=== PATIENT | female | born 1975 | race Caucasian/White ===

== ENCOUNTER 2017-02-11 06:56 | Day surgery (SDC) | payer OTHER ==
[~2017-02-11 06:56] MED LIST: CEFAZOLIN SODIUM 2 GRAM PREMIX 100 ML IV ONE; IV START KIT ONE; SODIUM CHLORIDE 0.9% 1,000 ML ONE
[2017-02-11] MEDS ORDERED: GENTAMICIN SULFATE 320 MG in SODIUM CHLORIDE 0.9% 100 ML IV PRN (07:50)
[2017-02-11] MEDS ORDERED: CEFAZOLIN SODIUM 2 GRAM DUPLEX 50 ML IV PRN (07:50)
[2017-02-11] MEDS ORDERED: CEFAZOLIN SODIUM 2 GRAM PREMIX 100 ML IV PRN (07:52)
[2017-02-11] MEDS ORDERED: SPINAL PROCEDURAL TRAY 1 EACH ONE (08:14)
[2017-02-11] MEDS ORDERED: BUPIVACAINE 0.75% SPINAL AMPUL 2 ML ONE (08:14)
[2017-02-11] MEDS ORDERED: MIDAZOLAM HCL 5 MG/5 ML VIAL ONE (08:16)
[2017-02-11] MEDS ORDERED: FENTANYL 100 MCG/2 ML VIAL ONE (08:16)
[2017-02-11] MEDS ORDERED: METRONIDAZOLE 20 APPLIC/70 G TUBE ONE (08:21)
[2017-02-11] MEDS ORDERED: LIDOCAINE 0.5%/EPI 1:200,000 (MULTIDOSE) 50 ML VIAL ONE (08:21)
[2017-02-11] MEDS ORDERED: ESTROGENS,CONJUGATED CREAM 30 G/TUBE VG ONE (08:21)
[2017-02-11] MEDS ORDERED: BUPIVACAINE 0.5% (PRES FREE) 30 ML VIAL ONE (08:22)
[2017-02-11] MEDS ORDERED: SODIUM CHLORIDE 0.9% 50 ML ONE (08:22)
[2017-02-11] MEDS ORDERED: NEOMY SULF/POLYMYXIN B SULFATE 1 ML AMP IR ONE (08:24)
[2017-02-11] MEDS ORDERED: OPIUM/BELLADONNA ALKALOIDS 1 EACH SUP PR ONE (08:24)
[2017-02-11] MEDS ORDERED: METOCLOPRAMIDE HCL 5 MG/ML 2ML VIAL ONE (08:48)
[2017-02-11] MEDS ORDERED: PROMETHAZINE HCL 25 MG/ML VIAL IM PRN (08:50)
[2017-02-11] MEDS ORDERED: LABETALOL HCL 5 MG/ML 20ML VIAL IV PRN (08:50)
[2017-02-11] MEDS ORDERED: MEPERIDINE 25 MG/ML SYRINGE IV PRN (08:50)
[2017-02-11] MEDS ORDERED: ATROPINE SULFATE 0.4 MG/1 ML VIAL IV PRN (08:50)
[2017-02-11] MEDS ORDERED: NALOXONE HCL 0.4 MG/ML VIAL IV PRN (08:50)
[2017-02-11] MEDS ORDERED: ONDANSETRON 4 MG/2ML 2 ML VIAL IV PRN ×2 (08:50→10:02)
[2017-02-11] MEDS ORDERED: MORPHINE SULFATE 4 MG/ML SYRINGE IV PRN (08:50)
[2017-02-11] MEDS ORDERED: LACTATED RINGERS 1,000 ML IV SCH (09:00)
[2017-02-11] MEDS ORDERED: MORPHINE SULFATE 2 MG/ML SYRINGE IV PRN (10:02)
[2017-02-11] MEDS ORDERED: HYDROCODONE/ACETAMINOPHEN 5/325MG TABLET PO PRN (10:02)
[2017-02-11] MEDS ORDERED: HYDROCODONE/ACETAMINOPHEN 5/325MG TABLET ONE (12:51)
--- NOTE | 2017-02-11 13:09 | OP ---
MATT PATTERSON [id number] DATE OF OPERATION: February 11, 2017 SURGEON: Alfredo Colunga M.D. POLISH MAKER: Rohan Buckner ANESTHESIA: Spinal. PREOPERATIVE DIAGNOSES: 1. 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 2. Occasional urgency with urge incontinence. POSTOPERATIVE DIAGNOSES: 1. 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 2. Occasional urgency with urge incontinence. PROCEDURE: 1. CYSTOSCOPY. 2. TROCAR SUPRAPUBIC CYSTOSTOMY TUBE PLACEMENT WITH DRAINAGE. 3. SUBURETHRAL SLING. SPECIMENS: None. INDICATIONS: A 41-year-old woman with a greater than two year history of increasing urge symptoms and incontinence with a predominant stress pattern. She has occasional urgency with urge incontinence episodes, previous history of two vaginal deliveries. Studies have confirmed the presence of urethral hypermobility without significant cystocele and at this point she is electing a surgical intervention. There is some mild voiding dysfunction on the basis of conditioned overuse of sphincter. FINDINGS: Healthy appearing vaginal and periurethral tissues. No significant cystocele. Urethral hypermobility as expected. Squamous metaplasia of the trigone. Normal ureteral orifices. No focal bladder wall lesions. PROCEDURE: The patient was identified and brought to the operating room where spinal anesthetic was applied, and then she was placed in a dorsal lithotomy position. The genital region was prepared and draped sterilely including a vaginal preparation. Next, sites were marked 2 cm above the pubic brim in the midline and at the level of the clitoris in the groin folds. These were treated with 0.5% Marcaine and the suprapubic site was opened with a stab incision. Next, cystoscopy was performed with a 17 [place] scope using water as in irrigant. Findings are reported above. Using the scope to overdistend the bladder, we placed the patient in Trendelenburg position and then used a Bard 12 Ni[place]an trocar suprapubic tube system to access the high anterior wall of the overdistended bladder during expiratory phase. The trocar and stylet were removed, and the balloon was inflated and seated against the bladder wall. It was allowed to drain throughout the case and ultimately secured at the level of the skin with #2-0 nylon. Cystoscope was withdrawn and replaced with a Hairston catheter to gravity drainage. A posterior weighted speculum was inserted followed by a [place] retractor for labial retraction. The suburethral tissues were then treated with 0.5% lidocaine containing epinephrine. I opened a vertical incision suburethrally over approximately 1.5 cm and developed tunnels out to the pubis on each side. Next, the previously anesthetized groin sites were opened with stab incisions, and a Halo type carrier was used to come around the medial aspect of the obturator foramen where the tips were delivered into the dissected tunnels. A polypropylene mesh graft was then carried from the vaginal aspect to the groin folds with the carriers on each side. Tensioning was completed with a 20 [place]an sound as a suburethral spacer. We then irrigated with genitourinary irrigant containing some Betadine paint and closed the vaginal wound with a running #2-0 Vicryl suture. The Hairston catheter was then removed and cystoscopy repeated. No perforation of the urethra or other bladder structures were noted aside from the suprapubic tube which remained in good position. The cystoscope was then withdrawn and placement of the urethra checked with a sound. Without any unwanted upward traction, we packed the vagina with gauze containing Flagyl gel and then removed the sutures on the sling itself in the groin folds. The groin wounds were closed with Dermabond underneath SteriStrips. Estimated blood loss less than 50 mL. Sponge and needle counts were correct. No early complications. Patient was taken in stable condition to the post anesthesia room. Cc: Alfredo Colunga M.D. Josh Swift M.D.
== END 2017-02-11 15:09 | disposition home or self-care (01) ==
LOC: SDC 06:56
PROVIDERS: ATTEND Urology
DX: N36.41 Hypermobility of urethra (principal); N39.46 Mixed incontinence; E11.9 Type 2 diabetes mellitus without complications; K57.90 Diverticulosis of intestine, part unspecified, without perforation or abscess without bleeding; F32.9 Major depressive disorder, single episode, unspecified; F17.200 Nicotine dependence, unspecified, uncomplicated
CPT/HCPCS: 57288; 51040; J3010; J1580; A9270 ×3; J2765; J2250; J7030; J7050; J0690